=== PATIENT | female | born 1940 | race Caucasian/White ===

== ENCOUNTER → 2018-04-10 | Outpatient (CLI) | payer MEDICARE, OTHER ==
[~2018-04-10] MED LIST: BUPIVACAINE MPF 0.25% 10 ML VIAL. ONE; IOHEXOL 300 MG/ML 50 ML VIAL. ONE; LIDOCAINE 1% PF 30 ML VIAL. ONE; methylPREDNISolone ACETATE 40 MG/ML VIAL. ONE
== END | disposition home or self-care (01) ==
LOC: SURG 10:06
PROVIDERS: ATTEND Anesthesiology
DX: M19.011 Primary osteoarthritis, right shoulder (principal); M79.1 Myalgia; K21.9 Gastro-esophageal reflux disease without esophagitis; I10 Essential (primary) hypertension; E78.00 Pure hypercholesterolemia, unspecified; I25.2 Old myocardial infarction; J45.909 Unspecified asthma, uncomplicated; M47.812 Spondylosis without myelopathy or radiculopathy, cervical region; Z90.710 Acquired absence of both cervix and uterus; Z98.890 Other specified postprocedural states; Z79.82 Long term (current) use of aspirin; Z79.899 Other long term (current) drug therapy; Z87.891 Personal history of nicotine dependence; Z72.89 Other problems related to lifestyle
CPT/HCPCS: 20553; 20610; 77002; J1030; J2001; J3490; 20611; Q9967

== ENCOUNTER → 2020-09-22 | Outpatient (CLI) | payer MEDICARE, OTHER ==
--- NOTE | 2020-09-22 11:44 | RAD ---
EXAM: DUAL ENERGY X-RAY ABSORPTIOMETRY (DEXA). HISTORY: Postmenopausal screening. FINDINGS: The lowest measured T-score is -1.2 in the right hip, based on a bone mineral density of 0. 808 g/cm^2. Refer to the worksheets for full detail. No comparison examinations are available. IMPRESSION: 1. Low bone mass. Bone mineral density yields a T-score between -1.0 and -2.5. Fracture risk is incre ased. 2. FRAX report: Not calculated. METHODOLOGY: Dual energy x-ray absorptiometry was performed to measure bone mineral density. The foll owing analysis is based on the 2019 Official Positions of the International Society for Clinical Dens itometry: Measurements of the hips and the average of L1-L4 are preferred. When the spine and/or hip cannot be feasibly measured or interpreted, or in the setting of hyperparathyroidism, distal radial bone minera l density may be measured. The lumbar spine T-score is based on the average bone mineral density of L1-L4. In the setting of art ifact or anatomic abnormality, some lumbar levels may be excluded, and the remaining levels used for calculation. A single lumbar level is not used for diagnosis, and if only a single level is available for assessment, another anatomic site will be used to assign a diagnosis. The hip T-score is based on the bone mineral density measurement of the femoral neck or total proxima l femur of either side, whichever is lowest. Bilateral mean values are not used for diagnosis. The forearm T-score is derived from 33% of the distal radius of the nondominant forearm. Electronically signed by: Lydia Goodwin MD (09/22/2020 11:42 AM) [id number]
--- NOTE | 2020-09-23 10:29 | RAD ---
EXAM: Bilateral screening mammogram. HISTORY: 79-year-old female presents for screening mammography. TECHNIQUE: Full-field digital craniocaudal and mediolateral oblique views of both breasts are obtaine d for evaluation. Computer aided detection was applied. COMPARISON: 08/30/2019 BREAST PARENCHYMAL DENSITY: Level B - Scattered fibroglandular densities. FINDINGS: There is no new suspicious mass, microcalcification or region of architectural distortion. IMPRESSION: BI-RADS Category 2: Benign finding(s). RECOMMENDATION: Annual mammography is recommended. If your mammogram demonstrates that you have dense breast tissue, which could hide abnormalities, and if you have other risk factors for breast cancer that have been identified, you might benefit from s upplemental screening tests that may be suggested by your ordering physician. Dense breast tissue, i n and of itself, is a relatively common condition. This information is not provided to cause undue c oncern, but rather to raise your awareness and to promote discussion with your physician regarding th e presence of other risk factors, in addition to dense breast tissue. A report of your mammography re sults will be sent to you and your physician. You should contact your physician if you have any ques tions or concerns regarding this report. Mammography is a sensitive method for finding small breast cancers, but it does not detect them all a nd is not a substitute for careful clinical examination. A negative mammogram does not negate a clin ically suspicious finding and should not result in delay in biopsying a clinically suspicious abnorma lity. PQRS compliance statement - Patient information was entered into a reminder system with a target due date for the next mammogram. "Our facility is accredited by the [employer] Mammography [employer]." Electronically signed by: Lydia Goodwin MD (09/23/2020 10:27 AM) [id number]
== END ==
LOC: MAMMO 10:31
PROVIDERS: ATTEND Family Medicine
DX: Z12.31 Encounter for screening mammogram for malignant neoplasm of breast (principal); M85.89 Other specified disorders of bone density and structure, multiple sites
CPT/HCPCS: 77067; 77080

== ENCOUNTER → 2021-10-05 | Outpatient (CLI) | payer MEDICARE, OTHER ==
--- NOTE | 2021-10-05 12:19 | RAD ---
Bilateral digital screening 2-D and 3-D (digital breast tomosynthesis) mammogram: Reason for examination: Routine screening. Comparison: Mammograms from 09/22/2020 and 08/30/2019. Interpretation was made with the benefit of CAD. FINDINGS: Breast density: Category B. There are scattered areas of fibroglandular density. No suspicious breast mass, malignant appearing calcifications, or architectural distortion is seen. IMPRESSION: No evidence of malignancy. Assessment: BI-RADS 1. Negative. Recommendation: Routine screening mammograms. The patient will receive a letter with the results in the mail. Patient information will be entered i nto the mammography reminder system with a target recall date for the next mammogram. A reminder alethea er will be generated. Electronically signed by: Lo Soto MD (10/05/2021 12:16 PM) [id number]
== END ==
LOC: MAMMO 10:38
PROVIDERS: ATTEND Family Medicine
DX: Z12.31 Encounter for screening mammogram for malignant neoplasm of breast (principal)
CPT/HCPCS: 77067

== ENCOUNTER → 2021-10-19 | Outpatient (CLI) | payer MEDICARE, OTHER ==
[~2021-10-19] MED LIST changes: -BUPIVACAINE MPF 0.25% 10 ML VIAL. ONE; -IOHEXOL 300 MG/ML 50 ML VIAL. ONE; +IOHEXOL 300 MG/ML 75 ML VIAL. IV ONE; -LIDOCAINE 1% PF 30 ML VIAL. ONE; -methylPREDNISolone ACETATE 40 MG/ML VIAL. ONE
--- NOTE | 2021-10-19 10:04 | RAD ---
Examination: CT chest without and with IV contrast HISTORY: History of shortness of breath, dry cough COMPARISON: None TECHNIQUE: Axial CT images of chest were performed without and with IV contrast. Coronal and sagittal reformats are performed Exposure: One or more of the following individualized dose reduction techniques were utilized for thi s examination: 1. Automated exposure control 2. Adjustment of the mA and/or kV according to patient size 3. Use of iterative reconstruction technique FINDINGS: The visualized thyroid gland grossly appears unremarkable. Central airways are patent. Moderate aort ic atherosclerosis. Coronary artery calcifications identified. The ascending aorta measures 3.6 cm in transverse dimension. No evidence for significant mediastinal lymphadenopathy. Multiple pleural calcifications identified in the left upper lobe, left lower lobe pleura likely summer gn pleural plaques. There is a calcified density measuring 2.2 x 2.3 cm abutting the left minor fissu re posteriorly containing soft tissue density within without significant enhancement. Faint tree-in-bud airspace opacities identified in the right upper lobe of the lung. The visualized l iver, spleen, adrenals grossly appears unremarkable Moderate degenerative changes thoracic spine. IMPRESSION: 1. Calcified density measuring 2.2 x 2.3 cm abutting the left minor fissure posteriorly containing s oft tissue density within without significant enhancement could be a calcified granuloma or less like ly neoplasm. Close interval follow-up examination in [address] scan is recommended. 2. Faint tree-in-bud airspace opacities identified in the right upper lobe of the lung likely infect ious or inflammatory etiology. Follow-up to resolution. 3. Multiple pleural calcifications identified in the left upper lobe, left lower lobe pleura likely benign pleural plaques. 4. Coronary artery calcifications. Electronically signed by: Charles Thompson MD (10/19/2021 10:01 AM) [place] [id number]
== END ==
LOC: CT 08:38
PROVIDERS: ATTEND Family Medicine
DX: R91.8 Other nonspecific abnormal finding of lung field (principal); I25.10 Atherosclerotic heart disease of native coronary artery without angina pectoris; I70.0 Atherosclerosis of aorta; J94.8 Other specified pleural conditions; M47.814 Spondylosis without myelopathy or radiculopathy, thoracic region; R05.9 Cough, unspecified; R09.89 Other specified symptoms and signs involving the circulatory and respiratory systems; Z77.090 Contact with and (suspected) exposure to asbestos
CPT/HCPCS: 71270; Q9967

== ENCOUNTER → 2021-11-30 | Outpatient (CLI) | payer MEDICARE, OTHER ==
--- NOTE | 2021-11-30 13:06 | RAD ---
EXAM: Chest CT without intravenous contrast. HISTORY: Asbestos exposure. Cough. TECHNIQUE: Computed tomographic images of the chest were obtained without contrast. Multiplanar refor matting was performed. *One or more of the following individualized dose reduction techniques were utilized for this examina tion: 1. Automated exposure control. 2. Adjustment of the mA and/or kV according to patient size. 3. Use of iterative reconstruction technique. COMPARISON: 09/19/2021. FINDINGS: There is a stable partially calcified soft tissue mass abutting the pleura of the superior segment of the left lower lobe, measuring approximately 3.0 cm in maximum dimension. There is adjacen t calcified pleural plaque and nodular pleural thickening due to scarring. There is calcified pleural plaque elsewhere throughout the left hemithorax and there is mild left hemithorax volume loss. There is left greater than right posterior dependent and basilar atelectasis. There is lateral left mid th oracic pleural parenchymal scarring. There is no pneumothorax or pleural effusion. There is an incide ntal azygos lobe. There is a new 1.6 cm groundglass opacity with smaller adjacent 7 mm groundglass opacity within the r ight upper lobe. There are stable tree-in-bud nodular opacities within the right lateral and posterio r upper lobe. There are new similar appearing tree-in-bud nodular opacities within the right lower lo be and middle lobe. The largest of these nodules measures 4 mm. The heart is normal in size. There is coronary artery calcification. The aorta is normal in caliber. There is no mediastinal or hilar lymphadenopathy. There is no acute finding involving the upper abdom en. There is degenerative change involving the spine. There is no acute or suspicious osseous finding . There is a chronic appearing compression fracture with superior endplate Schmorl's node at L2. IMPRESSION: 1. Stable partially calcified soft tissue mass abutting the pleura of the superior segment of the lef t lower lobe. The presence of calcification favors benign pleural parenchymal scarring. However, in t he absence of remote prior studies to confirm longer-term stability, this remains indeterminant. Cont inued short-term follow-up in 3 months or PET/CT can be performed. 2. New scattered groundglass opacities within the right upper lobe, likely infectious or inflammatory given the short interval change. There are also new tree-in-bud nodular opacities within the right m iddle and lower lobes which are similar to nodular opacities within the right upper lobe, favoring pr ogressive atypical infection. Attention at the time of follow-up is recommended to confirm resolution . 3. Calcified left pleural plaque and left hemithorax volume loss. Electronically signed by: Lydia Goodwin MD (11/30/2021 1:03 PM) [id number]
== END ==
LOC: CT 10:51
PROVIDERS: ATTEND Family Medicine
DX: J98.11 Atelectasis (principal); J92.9 Pleural plaque without asbestos; J94.8 Other specified pleural conditions; J98.4 Other disorders of lung; I25.10 Atherosclerotic heart disease of native coronary artery without angina pectoris; M79.89 Other specified soft tissue disorders; R93.89 Abnormal findings on diagnostic imaging of other specified body structures; Z77.090 Contact with and (suspected) exposure to asbestos
CPT/HCPCS: 71250

== ENCOUNTER → 2021-12-10 | Outpatient (CLI) | payer MEDICARE, OTHER ==
--- NOTE | 2021-12-10 14:20 | RAD ---
Study: XR FOOT_RIGHT 3 VIEWS Indication: Nonhealing first and fifth toe ulcers. Comparison: None. Findings: No fracture, periostitis or discrete erosion. Possible ulcer seen on the oblique view adjacent to the base of the fifth metatarsal. Reported great toe ulcer is difficult to appreciate by radiography. Th e bones appear osteopenic. Flexion deformities of the toes. Moderate arthrosis at the great toe MTP j oint. Chronic spurring at the dorsum of the talonavicular more so than naviculocuneiform joints. Impression: No fracture or radiographic evidence for osteomyelitis. Moderate arthrosis at the great toe MTP joint and mild degenerative changes scattered elsewhere. Electronically signed by: CATHLEEN FUNK MD (12/10/2021 2:17 PM) [id number]
== END ==
LOC: RAD 09:46
PROVIDERS: ATTEND Podiatrist Foot Surgery
DX: M19.071 Primary osteoarthritis, right ankle and foot (principal); M77.51 Other enthesopathy of right foot and ankle; M20.5X1 Other deformities of toe(s) (acquired), right foot; L97.519 Non-pressure chronic ulcer of other part of right foot with unspecified severity
CPT/HCPCS: 73630

== ENCOUNTER → 2021-12-15 | Outpatient (CLI) | payer MEDICARE, OTHER ==
--- NOTE | 2021-12-16 17:29 | RAD ---
Bilateral ankle-brachial indices 12/15/2021 CLINICAL HISTORY: Claudication. Peripheral vascular disease. TECHNIQUE: Systolic blood pressures of both arms and ankles were obtained. Ratios were generated for ankle-brachial indices. FINDINGS: The right ankle-brachial index is 0.9. The left ankle-brachial index is 0.9. These are cons istent with some arterial disease. IMPRESSION: The ankle-brachial indices are 0.9 consistent with some arterial disease. Electronically signed by: Juan Martinez MD (12/16/2021 5:27 PM) [id number]
== END ==
LOC: US 13:11
PROVIDERS: ATTEND Podiatrist Foot Surgery
DX: I73.9 Peripheral vascular disease, unspecified (principal)
CPT/HCPCS: 93923